=== PATIENT | male | born 1955 | race African-American/Black ===

== ENCOUNTER 2025-04-08 12:36 | Outpatient (AMB) | payer MEDICARE, SELFPAY ==
--- OUTSIDE RECORDS SUMMARY | 2024-05-19 08:49 | XMS_ITS | Encounter Summary ---
Author Organization [employer] Address [address] [place] [address] Care Team Providers Care Wool Hanker Name Role Phone Vivek Fowler MD Primary Care Provider [phone] Encounter Details Date Type Department Care Team (Late st Contact Info) Description 05/19/2024 8:49 AM EDT Hospital Encounter TH HISTORIC ENCOUNTERS [facility] ONLY Vivek Fowler MD [address] [place] [address] Social History Tobacco Use Types Packs/Day Years Used Date Smoking Tobacco: Never Smokeless Tobacco: Never Alcohol Use Standard Drinks/Week Comments No 0 (1 standard drink = 0.6 oz pur e alcohol) Sex and Gender Information Value Date Recorded Sex Assigned at Not on file Legal Sex Male 9:22 AM EST Gender Identity Not on file Sexual Orientation Not on file documented as of this encounter Last Filed Vital Signs Vital Sign Reading Time Taken Comments Blood Pressure 124/78 05/19/2024 9:07 AM EDT Pulse 76 05/19/2024 9:07 AM EDT Temperature - - Respiratory Rate - - Oxygen Saturation - - Inhaled Oxygen Concentration - - Weight 134 kg (295 lb) 05/19/2024 9:07 AM EDT Height 180.3 cm (5' 11 ) 05/19/2024 9:07 AM EDT Body Mass Index 41.14 05/19/2024 9:07 AM EDT documented in this encounter Plan of Treatment Not on file documented as of this encounter Visit Diagnoses Not on filedocumented in this encounter Care Teams Wool Hanker Relationship Specialty Start Date End Date Vivek Fowler MD PCP - General 09/27/22 documented as of this encounter
--- NOTE | 2025-04-08 12:41 | A.OFFVIS_ITS ---
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 He was at [facility] recently when he presented with dizziness which from his description sounds like vertigo. He had imaging done including CT scan and 2 brain MRIs which were negative. The documents noted initial diagnosis of TIA and later it was documented that he may have vestibular issues. He has been getting a spinning sensation in his head which is present even after closing his eyes. He feels his head is spinning. This is worse when he turns his head to the left. He has diplopia when he looks to the left side 2. 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 He wears hearing aids and follows with ENT regularly. He does not drink water and is very bad with hydration. His blood pressure is low and he is saying that his blood pressure is always low. No chest discomfort or shortness of breath. No clear syncopal episodes although he said in November while exercising in the gym with physiotherapist he had a spell where to gentleman held him from falling. His echocardiogram reportedly was normal at [facility] and did not have any wall motion abnormalities or valvular issues. He just completed a cardiac event monitor and we will get the report from [facility]. PFSH Family History (Updated 04/08/25 @ 12:55 by Melissa Escalante CMA) Mother Pacemaker High blood pressure Social History (Updated 04/08/25 @ 12:53 by Melissa Escalante CMA) Alcohol intake: never Patient Tobacco Use Status: Never used Tobacco Review of Systems Const Denies chills, Denies fatigue, Denies fever(s), Denies frequent falls, Denies we akness, Denies weight gain and Denies weight loss ENT Denies dizziness Card Denies chest pain, Denies leg edema, Denies lightheadedness, Denies palpit ations, Denies dyspnea, Denies dyspnea on exertion and Denies orthopnea Resp Denies cough, Denies dyspnea and Denies dyspnea on exertion GI Denies bloating and Denies change in bowel habits Musc Denies muscle weakness, Denies numbness and Denies tingling Neuro Denies dizziness, Denies frequent falls, Denies numbness, Denies tingling and Denies weakness Endo Denies fatigue and Denies palpitations Physical Exam Vital Signs: Last Vital Signs Pulse 66 04/08/25 12:45 BP 100/68 04/08/25 12:45 BMI result Body Mass Index 43.0 GENERAL APPEARANCE: in no acute distress, pleasant. NECK: no carotid bruit, no jugular venous distention. SKIN: no suspicious lesions, warm and dry. HEART: no murmurs, regular rate and rhythm. LUNGS: clear to auscultation bilaterally. ABDOMEN: soft, nontender. EXTREMITIES: no edema. PERIPHERAL PULSES: equal. NEUROLOGIC: No gross deficits, AAO X 3. Diplopia and nystagmus leftward gaze. Office Procedures EKG Details: Normal sinus rhythm 66 beats per minute, normal axis, low voltage, can not rule out anterior infarct, QTC 419 milliseconds [id number], Complete Assessment & Plan Assessment & Plan (1) Vertigo: Code(s): R42 - Dizziness and giddiness Category: Medical Plan 69-year-old gentleman who is here for dizziness. His clinical story is concerning for benign positional vertigo. I have advised him to keep himself well hydrated. Adding meclizine for symptomatic relief. He is known to ENT because of hearing loss from young age and we will be following with ENT to discuss management. He has neck surgery before infusion of vertebra so I am not sure whether Juancarlos or Franklin-Hallpike maneuvers will be possible but he should discuss this with ENT. His blood pressure is low. He has been advised to hydrate himself and decrease the lisinopril 10 mg daily. I have sent a new script for him. So far this does not appear to be a cardiovascular issue. We will monitor him closely and get the results of his event monitor done at [facility]. Thank you for allowing me to participate in the care of your patient. Please feel free to contact me if you have any questions. Medications: New lisinopril 10 mg PO DAILY 90 tabs 3RF Coding Level of Care Code New Pt Level 3 (45549) Diagnoses Vertigo R42 CPT Codes EKG - CPT: 53503-[id number], Complete ([id number])
[2025-04-08 12:45] VITALS: BP 100/68; PULSE 66; BMI 43.0
--- OUTSIDE RECORDS SUMMARY | 2025-04-08 15:03 | XMS_ITS | Clinical Summary ---
Author Organization [facility] Address [address] [place] [address] Care Team Providers Care Marine Painter Name Role Phone Charly Gonzalez Primary Care Provider Unavailabl e Medications Multiple Vitamins-Minerals (Diabetes Health) Misc 0 12/15/2016 Active Active Problems Problem Noted Date Diagnosed Date Obstructive sleep apnea hypopnea, severe 017 Left SNHL 12/15/2016 Social History Tobacco Use Types Packs/Day Years Used Date Smoking Tobacco: Never Assessed Comments:Smoking Status:Non- smoker Sex and Gender Information Value Date Recorded Sex Assigned at Not on file Legal Sex Male 8:35 PM EDT Gender Identity Not on file Sexual Orientation Not on file Plan of Treatment Health Maintenance Due Date Last Done Comments Hepatitis C Screening 1955 DTaP/Tdap/Td (1 - Tdap) 12/20/1973 Pneumococcal 50+ years (1 of 1 - PCV) 12/20/2005 Zoster (Shingrix) (1 of 2) 12/20/2005 COVID-19 Vaccine ( - 2023-2 5 season) 2025 Influenza (#1) 2025 RSV (1 - 1-dose 75+ series) 12/20/2030 Abdominal Aorta Imaging Discontinued HPV Vaccine (No Doses Required) Completed Hep A Aged Out No longer eligi ble based on patient's age to complete this topic Hep B Aged Out No longer eligi ble based on patient's age to complete this topic Hib Aged Out No longer eligi ble based on patient's age to complete this topic Meningococcal ACWY Aged Out No longer eligible based on patient's age to complete this topic Zoster (Zostavax) Discontinued Care Teams Marine Painter Relationship Specialty Start Date End Date Charly Gonzalez PCP - General 03/12/23
--- OUTSIDE RECORDS SUMMARY | 2025-04-08 15:03 | XMS_ITS | Clinical Summary ---
Author Organization [facility] [place] [address] Phone Care Team Providers Care Pig Iron Loader Name Role Phone Vivek Fowler MD Primary Care Provider [phone] Active Problems Problem Noted Date Diagnosed Date Severe left ventricular hypertrophy 12/24/2024 Immunizations Name Administration Dates Next Due Pfizer SARS-CoV-2 COVID-19, mRNA, LNP-S, preservative free 01/31/2021 Surgical History Surgery Date Site/Laterality Comments COLONOSCOPY 2015 PROCEDURE:COLONOSCOPY;COMMENT :int hemorrhoids otherwise normal; rec rpt in 10yrs SKIN LESION EXCISION PROCEDURE:SKIN LESION EXCISION;COMMENT:sebaceous cyst ANKLE SURGERY Right PROCEDURE:ANKLE SURGERY;COMMENT:X2 COLONOSCOPY 09/15/2015 N/A PROCEDURE:COLONOSCOPY;COMMENT :Procedure: COLONOSCOPY; Surgeon: Joe Naik MD; Location: [facility] ENDOSCOPY; Service: Gastroenterology; Laterality: N/A; EAR RECONSTRUCTION Right PROCEDURE:EAR RECONSTRUCTION CATARACT EXTRACTION W/ INTRAOCULAR LENS IMPLANT Bilateral PROCEDURE:CATARACT EXTRACTION W/ INTRAOCULAR LENS IMPLANT MUSCLE BIOPSY 09/30/2019 Right PROCEDURE:MUSCLE BIOPSY;COMMENT:Procedure: BIOPSY MUSCLE RIGHT LEG DEEP; Surgeon: Nghia Daniels MD; Location: [facility] SURGERY; Service: General; Laterality: Right; JOINT REPLACEMENT PROCEDURE:JOINT REPLACEMENT FRACTURE SURGERY PROCEDURE:FRACTURE SURGERY EYE SURGERY PROCEDURE:EYE SURGERY TOTAL KNEE ARTHROPLASTY Bilateral PROCEDURE:REPLACEMENT TOTAL KNEE BILATERAL TOTAL HIP ARTHROPLASTY Right PROCEDURE:TOTAL HIP ARTHROPLASTY Medical History Medical History Date Comments Can't get food down 02/07/2015 DX:Can't get food down HLD (hyperlipidemia) 02/07/2015 DX:HLD (hyp erlipidemia) BP (high blood pressure) 02/07/2015 DX:BP ( high blood pressure) Dysmetabolic syndrome 02/07/2015 DX:Dysmeta bolic syndrome Adiposity 02/07/2015 DX:Adiposity Atheroma, skin 02/07/2015 DX:Atheroma, ski n Diabetes mellitus, slow onse t ([facility] V24, [facility] V28) 02/07/2015 DX:Diabetes mellitus, slow onset (HCC) Nocturnal dyspnea 02/07/2015 DX:Nocturnal d yspnea H/O cardiovascular stress test 2013 D X:H/O cardiovascular stress test;COMMENT:neg Vitamin D deficiency DX:Vitamin D deficiency Anemia DX:Anemia Vitamin B12 deficiency DX:Vitami n B12 deficiency DDD (degenerative disc disea se), lumbar DX:DDD (degenerative disc di sease), lumbar H/O echocardiogram 2010 DX:H/O echoca rdiogram;COMMENT:mild LA enlargement, evidence of LV diasolic dysfunction with abnormal relaxation filling pattern AGUSTÍN (obstructive sleep apnea) 02/07/2015 DX :AGUSTÍN (obstructive sleep apnea);COMMENT:severe w/ sleep hypoxemia and insomnia cpap Pneumonia DX:Pneumonia Tuberculosis DX:Tuberculosis Diabetes ([facility] V24, [facility] V28) DX:Diabetes ([facility]) Primary osteoarthritis of right hip 05/06/2020 DX:Primary osteoarthritis of right hip Cataract DX:Cataract Family History Medical History Relation Name Comments Other: Father unknown Cancer Mother Unknown Diabetes Mother Heart disease Mother Hypertension Mother Other: Mother unknown Relation Name Status Comments Father Mother Sister Alive Social History Tobacco Use Types Packs/Day Years Used Date Smoking Tobacco: Never Smokeless Tobacco: Never Alcohol Use Standard Drinks/Week Comments No 0 (1 standard drink = 0.6 oz pur e alcohol) Sex and Gender Information Value Date Recorded Sex Assigned at Not on file Legal Sex Male 9:22 AM EST Gender Identity Not on file Sexual Orientation Not on file Obstetrics History Last Filed Vital Signs Vital Sign Reading [...] Mass Index 41.14 05/19/2024 9:07 AM EDT Plan of Treatment Health Maintenance Due Date Last Done Comments Diabetes: Annual Foot Exam 12/20/1965 Diabetes: Annual Retina Eye Exam 12/20/1965 RSV Immunization Adult Patients (1 - Risk 60-74 years 1-dose series) 2015 Diabetes: Annual GFR (Glomerular Filtration Rate) 05/09/2020 05/09/2019, 02/20/2019, 08/28/2018, Additional history exists Hepatitis B Vaccines (3 of 3 - 19+ 3-dose series) 07/14/2021 02/16/2021, 01/12/2021 Abdominal Aortic Aneurysm (AAA) Screen 07/13/2022 Colorectal Cancer Screening: Colonoscopy 07/13/2022 Falls Risk Assessment 07/13/2022 Hepatitis C Screening 07/13/2022 Hypertension/CHF/CAD Annual BMP Blood Test 07/13/2022 05/09/2019, 02/20/2019, 08/28/2018, Additional history exists Medicare Annual Wellness Visit 07/13/2022 Social Influencers of Health Screening 07/13/2022 Diabetes: Annual Urine Albumin-Creatinine Ratio (uACR) 07/25/2022 Zoster Vaccines (2 of 2) 03/08/2023 01/11/2023 COVID-19 Vaccine ( - season) 2024 01/31/2021, 11/14/2020 Depression Screening 08/06/2024 Diabetes: Blood Sugar Control Test (HGBA1C) 09/28/2024 03/28/2024, 03/24/2022 Influenza Vaccine (#1) 2025 , 04/19/2020, 04/07/2020, Additional history exists DTaP,Tdap,and Td Vaccines (2 - Td or Tdap) 12/24/2026 12/24/2016 Cholesterol Screening (Lipid Panel) 03/28/2029 03/28/2024, 03/28/2024, 05/09/2019, Additional history exists Meningococcal ACWY Vaccine Aged Out 09/03/2002 N o longer eligible based on patient's age to complete this topic Pneumococcal Vaccine: 50+ Years Completed 12/27/2022 HIB Vaccines Aged Out No longer eligi ble based on patient's age to complete this topic HPV Vaccines Aged Out No longer eligi ble based on patient's age to complete this topic Hepatitis A Vaccines Aged Out No long er eligible based on patient's age to complete this topic IPV Vaccines Aged Out No longer eligi ble based on patient's age to complete this topic MMR Vaccines Aged Out No longer eligi ble based on patient's age to complete this topic Meningococcal B Vaccine Aged Out No l onger eligible based on patient's age to complete this topic RSV Immunization Patients Under 20 months Aged Out No longer eligible based on patient's age to complete this topic Varicella Vaccines Aged Out No longer eligible based on patient's age to complete this topic Insurance [employer] MED[employer]ARE [employer]VANTAGE Care Teams Pig Iron Loader Relationship Specialty Start Date End Date Vivek Fowler MD PCP - General 09/27/22
--- OUTSIDE RECORDS SUMMARY | 2025-04-08 15:03 | XMS_ITS | Clinical Summary ---
Author Organization [facility] Address [address] [place] [address] Care Team Providers Care Glue Bone Drier Name Role Phone Unavailable Primary Care Provider Unavailabl e Allergies No known active allergies Medications SUPPLY DME MISCIndication s:Arthropathy, transient, ankle or foot, left B/L WIDE HIGH TOE BOX SNEAKERS 1 each 3 Active SUPPLY DME MISCIndication s:Arthropathy, transient, ankle or foot, left B/L ACCOMMODATIVE PLASTIZOTE INSERTS 1 each 3 Active SUPPLY DME MISCIndication s:Arthropathy, transient, ankle or foot, left B/L WIDE HIGH TOE BOX SHOES 1 each 3 Active Social History Tobacco Use Types Packs/Day Years Used Date Smoking Tobacco: Never Assessed Sex and Gender Information Value Date Recorded Sex Assigned at Not on file Legal Sex Male 3:22 PM EDT Gender Identity Not on file Sexual Orientation Not on file Plan of Treatment Health Maintenance Due Date Last Done Comments Hepatitis C Virus Screening 1955 DTaP/Tdap/Td Vaccines (1 - Tdap) 12/20/1974 Pneumococcal Vaccines 50+ (1 of 1 - PCV) 12/20/2005 Zoster (Shingles) Vaccine (1 of 2) 12/20/2005 COVID-19 Vaccine ( - 2023-2 5 season) 2024 RSV Vaccine 60 years and old er and Patients (1 - 1-dose 75+ series) 12/20/2030 Hepatitis B Vaccines Aged Out No long er eligible based on patient's age to complete this topic
--- OUTSIDE RECORDS SUMMARY | 2025-04-08 15:03 | XMS_ITS ---
Author Name [facility] Organization Unknown History of Medication Use Medication Directions Dispensed Refills Start Date End Date Stat meloxicam 15 mg tablet Take 1 tablet every day by oral route. 08/14/2024 active gabapentin 100 mg capsule TAKE 1 CAPSULE BY MOUTH THREE TIMES A DAY 07/13/2024 active Lantus Solostar U-100 Insulin 100 unit/mL (3 mL) subcutaneous pen 02/20/2024 active SUPPLY DME MISC B/L WIDE HIGH TOE BOX SNEAKERS 05/18/2023 active Ozempic 1 mg/dose (4 mg/3 mL) subcutaneous pen injector INJECT 1 MG UNDER THE SKIN EVERY 7 DAYS 04/23/2023 active semaglutide 0.25 mg or 0.5 mg (2 mg/3 mL) subcutaneous pen injector Inject 1 mg as directed once a week. 09/19/2022 4 completed ferrous gluconate 324 mg (36 mg iron) tablet Take 1 tablet (324 mg total) by mouth daily. 09/18/2022 active hydrocodone 7.5 mg-acetaminophen 325 mg tablet TAKE ONE TABLET BY MOUTH EVERY 8 HOURS NEEDED FOR PAIN UP TO SEVEN DAYS 10/19/2021 2 completed naproxen 500 mg tablet TAKE 1 TABLET BY MOUTH TWICE A DAY WITH MEALS 09/03/2021 3 completed amlodipine 5 mg tablet TAKE 1 TABLET BY MOUTH EVERY DAY 10/18/2020 active polyethylene glycol 3350 17 gram oral powder packet Take 17 g by mouth daily as needed. 07/07/2020 3 completed sennosides 8.6 mg tablet Take 2 tablets (17.2 mg total) by mouth 2 (two) times a day as needed. 07/07/2020 3 completed baclofen 10 mg tablet TAKE 1 TABLET BY MOUTH TWICE DAILY AND TAKE 2 TABS AT BEDTIME 04/08/2020 3 completed Xyosted 100 mg/0.5 mL subcutaneous auto-injector Inject 100 mg as directed once a week. 12/04/2018 2 completed Lipitor 20 mg tablet Take 1 tablet (20 mg total) by mouth daily. 12/28/2017 active Bydureon INJECT 2MG SUBCUTANEOUSLY ONCE A WEEK 08/14/2016 3 completed Glucophage 1,000 mg tablet Take 1 tablet (1,000 mg total) by mouth every morning with breakfast. 01/18/2015 active lisinopril 20 mg tablet 01/14/2015 active allopurinol 300 mg tablet Allopurinol 300 MG Oral Tablet TAKE 1 TABLET DAILY. Refills: 0 Started 25-Sep-2013 Active 09/25/2013 active aspirin 81 mg tablet Aspirin 81 MG Oral Tablet TAKE 1 TABLET DAILY. Refills: 0 Started 25-Sep-2013 Active 09/25/2013 active tramadol 50 mg tablet Take 50 mg by mouth every 6 (six) hours as needed for pain. 3 completed meloxicam 15 mg tablet active Problems Problem Status Onset Date Problem Type Date of Resolution Source Hyperlipidemia active 2015-02-07 ProblemAct [facility] Cobalamin deficiency active 2015-02-07 ProblemAct [facility] Prostate specific antigen above reference range active 2024-08-14 ProblemAct [facility] Paroxysmal supraventricular tachycardia active 2017-08-29 ProblemAct [facility] Cervical spondylosis active 2016-11-07 ProblemAct [facility] Severe obesity active 2015-02-07 ProblemAct [facility] Snoring active 2015-02-07 ProblemAct [facility] Anemia active 2015-02-07 ProblemAct [facility] History of clinical finding in subject active 2023-03-27 ProblemAct [facility] Numbness of lower limb active 2015-02-08 ProblemAct [facility] Anesthetics adverse reaction active 2020-09-27 ProblemAct [facility] Arthritis of lumbosacral spine active 2024-08-14 ProblemAct [facility] Heavy legs active 2015-02-08 ProblemAct [facility] Obstructive sleep apnea syndrome active 2015-02-08 ProblemAct [facility] Diabetes mellitus active 2021-11-17 ProblemAct [facility] COVID-19 active 2023-05-14 [facility] Dysphagia active 2015-02-07 ProblemAct [facility] Type 2 diabetes mellitus without complication active 2015-02-07 ProblemAct [facility] Epidermoid cyst of skin active 2015-02-07 ProblemAct [facility] Nocturnal dyspnea active 2015-02-07 [facility] Metabolic syndrome X active 2015-02-07 ProblemAct [facility] Chronic ankle pain active 2017-08-29 ProblemAct [facility] Localized, primary osteoarthritis active 2020-05-06 ProblemAct [facility] Hypertensive disorder active 2015-02-07 ProblemAct [facility] Arthropathy, transient, ankle or foot, left active [facility] Immunizations Vaccine Date Source Lot Number Status Seasonal trivalent influenza vaccine, adjuvanted, preservative free [facility]19/[id number] zoster vaccine subunit 01/11/2023 [facility] [id number] co mpleted Pneumococcal conjugate vacci ne 20-valent (PCV20), polysaccharide [id number] conjugate, adjuvant, preservative free 12/27/2022 [facility] [id number] comp leted hepatitis B vaccine, adult dosage 02/16/2021 [facility] 74 [id number] completed hepatitis B vaccine, adult dosage 01/12/2021 [facility] EM[facility] completed SARS-COV-2 (COVID-19) vaccin e, mRNA, spike protein, LNP, preservative free, 30 mcg/0.3mL dose 11/14/2020 [facility] [id number] completed Influenza, injectable, quadr ivalent, preservative free 04/19/2020 [facility] [id number] completed Influenza, injectable, quadr ivalent, preservative free 04/07/2020 [facility] completed Influenza, injectable, [place] [place] Canine Kidney, preservative free, quadrivalent 06/14/2019 [facility] [id number] completed tetanus toxoid, reduced diph theria toxoid, and acellular pertussis vaccine, adsorbed 12/24/2016 [facility] completed meningococcal polysaccharide vaccine (MPSV4) 09/03/2002 [facility] Encounters Encounter Type Encounter Reason Primary Diagnosis Location Date [facility]24 [facility] 12/23/2024 [facility] 11/24/2024 [facility] 10[facility]23/2024 [facility] 09/23/2024 Ambulatory [facility] 04/2025 Ambulatory [facility] 04/2025 Ambulatory [facility] 04/2025 Ambulatory [facility] 06/07 [facility] 09/24/2023 [facility] 09[facility]24/2023 [facility] 08/22/2023 [facility] 08/22/2023 [facility] 07[facility]21/2023 [facility] 07/21/2023 [facility] 06[facility]30/2023 Ambulatory [facility], [facility] 06/30/2023 [facility] 06/06/2023 [facility] 05/18/2023 [facility] 05/18/2023 [facility] 05/03/2023 [facility] 04/30/2023 [facility] 04/23/2023 [facility] 04/05/2023 Ambulatory [facility], [facility] 04/05/2023 [facility] 04/05/2023 [facility] 02/19/2023 [facility] 02/16/2023 Ambulatory [facility], [facility] 02/16/2023 [facility] 02[facility]16/2023 Care Team Organization Name Specialty Phone Email Start Date End [facility] 08/19/2024 11/13/2024 [facility] 07/18/2023 03/24/2024 Xiomara Serrano MD, [facility] 02/16/2023 [facility] XIOMARA SERRANO Primary Care 01/12/202303/06
--- OUTSIDE RECORDS SUMMARY | 2025-04-08 15:03 | XMS_ITS | Clinical Summary ---
Author Organization [facility] Facility Address [address] [address] Care Team Providers Care Supervisor Customer Complaint Service Name Role Phone Adrian Russell MD Primary Care Provider Allergies No known active allergies Medications allopurinol (ZYLOPRIM) 300 MG tablet TAKE 1 TABLET BY MOUTH ONCE A DAY 90 tablet 11 1 Active amLODIPine (NORVASC) 5 MG tablet Take 1 tablet by mouth 1 (one) time each day 1 Active atorvastatin (LIPITOR) 20 MG tablet Take 20 mg by mouth at bed time 2 Active econazole nitrate 1 % cream 2 Active Exenatide ER (Bydureon) 2 MG pen-injector INJECT 2MG SUBCUTANEOUSLY ONCE A WEEK 7 Active HYDROcodone-ac etaminophen (NORCO) 7.5-325 MG per tablet TAKE ONE TABLET BY MOUTH EVERY 8 HOURS NEEDED FOR PAIN UP TO SEVEN DAYS 2 Active lisinopril 20 MG tablet Take 20 mg by mouth 1 (one) time each day 2 Active metFORMIN (GLUCOPHAGE) 1000 MG tablet Take 1,000 mg by mouth 5 Active modafinil (PROVIGIL) 200 MG tablet Take 100 mg by mouth 1 (one) time each day 2 Active naproxen (NAPROSYN) 500 MG tablet Take 500 mg by mouth in the morning and 500 mg in the evening. Take with meals. 2 Active prednisoLONE acetate (PRED FORTE) 1 % ophthalmic suspension INSTILL 1 DROP INTO LEFT EYE 4 TIMES A DAY DIRECTED 2 Active Active Problems Problem Noted Date Diagnosed Date Anemia 11/17/2021 Diabetes mellitus 11/17/2021 Overview (11/17/2021): oral and other SC injectable Renal stone 11/17/2021 Vitamin B12 deficiency 11/17/2021 Anesthetics adverse reaction 09/27/2020 Overview (11/17/2021): has woken up several times Overview: has woken up several times Prostate specific antigen above reference range 09/27/2020 Arthritis of right hip 07/06/2020 Localized, primary osteoarthritis 05/06/2020 Primary osteoarthritis of right hip 05/06/2020 Chronic ankle pain 08/29/2017 Cervical spondylosis 11/07/2016 Heavy legs 02/08/2015 Numbness of lower limb 02/08/2015 Obstructive sleep apnea syndrome 02/08/2015 Dysphagia 02/07/2015 Epidermoid cyst of skin 02/07/2015 Hyperlipidemia 02/07/2015 Hypertensive disorder 02/07/2015 Metabolic syndrome X 02/07/2015 Nocturnal dyspnea 02/07/2015 Severe obesity 02/07/2015 Snoring 02/07/2015 Type 2 diabetes mellitus without complication Paroxysmal supraventricular tachycardia 08/06/19 14 Overview (11/17/2021): controlled with CCB; MCT in 2013 short run of AT (see note scanned into Media 09/26/2018 Marielle KOROMA /Aneesh DALAL [facility] [place] Immunizations Immunization Administration Dates Next Due Meningococcal Polysaccharide 09/03/2002 Tdap 12/24/2016 Family History Medical History Relation Comments Diabetes Mother Heart disease Mother Hypertension Mother Relation Status Comments Mother Social History Tobacco Use Types Packs/Day Years Used Date Smoking Tobacco: Never Smokeless Tobacco: Never Alcohol Use Standard Drinks/Week Comments No 0 (1 standard drink = 0.6 oz pur e alcohol) Sex and Gender Information Value Date Recorded Sex Assigned at Not on file Legal Sex Male 5:18 PM EST Gender Identity Not on file Sexual Orientation Not on file Last Filed Vital Signs Vital Sign Reading Time Taken Comments Blood Pressure 104/60 11/17/2021 1:30 PM EDT Pulse 71 11/17/2021 1:30 PM EDT Temperature - - Respiratory Rate - - Oxygen Saturation 98% 11/17/2021 1:30 PM EDT Inhaled Oxygen Concentration - - Weight 144 kg (317 lb) 11/17/2021 1:30 PM EDT Height 182.9 cm (6') 11/17/2021 1:30 PM EDT Body Mass Index 42.99 11/17/2021 1:30 PM EDT Plan of Treatment Health Maintenance Due Date Last Done Comments Colorectal Cancer Screening: Annual FOBT 12/20/2004 Colorectal Cancer Screening: Colonoscopy 12/20/2004 Colorectal Cancer Screening: Sigmoidoscopy 12/20/2004 Pneumococcal Vaccine: 50+ Years (1 of 1 - PCV) 12/20/2005 Diabetes: Ophthalmology Exam 09/03/2020 Diabetes: Pedal Pulse Checked 09/03/2020 Diabetes: Sensory Foot Exam 09/03/2020 Diabetes: Visual Foot Exam 09/03/2020 Diabetes: Hemoglobin A1C 12/07/2021 022, 09/16/2019 Influenza Vaccine (#1) 2025 Hepatitis B Vaccine Aged Out No longe r eligible based on patient's age to complete this topic Procedures Procedure Name Priority Date/Time Associated Diagnosis Comments HEMOGLOBIN A1C Routine 09/16/2019 2:21 PM EST from Last 3 Months or Most Recently Relevant to Health Maintenance Results * (ABNORMAL) Hemoglobin A1c (09/16/2019 2:21 PM EST) Hemoglobin A1C 6.9(H) (4.0-5.6) % [facility] 3 Comment: Effective 09/08/19, hemoglobin A1c reference range changed. MONITORING: In known diabetic patients, hemoglobin A1c targets should be discussed with health care provider. DIAGNOSTIC USE: The [place] Diabetes [employer] (ADA) and the World Health Organization (WHO) recommend the use of HbA1c to diagnose diabetes using a threshold of 6.5%. Patients who have an HbA1c between 5.7% and 6.4% are considered at increased risk for developing diabetes in the future. CAUTION: Falsely low HbA1c results may be observed in patients with hemolytic anemia, homozygous forms of abnormal hemoglobin (e.g. SS, CC, SC), , recent blood loss or hemoglobin F greater than 7%. Fructosamine may be used as an alternate test in these cases. REFERENCE: ADA: Standards of Medical Care in Diabetes 2020, The Journal of Clinical and Applied Research and Education Volume 43, Supplement 1 Testing performed or reported by ~[facility], ~a Service of [facility], ~[address] [place] [id number]~ Jose Cao MD, Weather Observer~ 09/16/2019 2:21 PM EST us Olayinka Reyez MD LAB BLOOD ORDERABLES Final Re sult [facility] 3 from Last 3 Months or Most Recently Relevant to Health Maintenance [place] Care Teams Supervisor Customer Complaint Service Relationship Specialty Start Date End Date Adrian Russell MD [address] [place] [address], [address] [place] [address] PCP - General Internal Medicine 09/26/21
--- OUTSIDE RECORDS SUMMARY | 2025-04-08 15:03 | XMS_ITS | Clinical Summary ---
Author Organization [facility] Address [address] [place] [address] Care Team Providers Care Indigo Mixer Name Role Phone Vivek Fowler MD Primary Care Provider [phone] Allergies No known active allergies Medications Medication Sig Dispensed Refills Start Date End Date Status allopurinol (ZYLOPRIM) 300 MG tablet Allopurinol 300 MG Oral Tablet TAKE 1 TABLET DAILY. Refills: 0 Started -Sep-2013 Active 0 09/25/2013 Active aspirin 81 MG tablet Aspirin 81 MG Oral Tablet TAKE 1 TABLET DAILY. Refills: 0 Started -Sep-2013 Active 0 09/25/2013 Active lisinopril (PRINIVIL,ZESTRIL) 20 MG tablet 4 01/14/2015 Active GLUCOPHAGE 1000 MG tablet Take 1 tablet (1,000 mg total) by mouth every morning with breakfast. 4 01/18/2015 Active LIPITOR 20 MG tablet Take 1 tablet (20 mg total) by mouth daily. 0 12/28/2017 Active amLODIPine (NORVASC) tablet 5 mgIndications:Essen tial hypertension TAKE 1 TABLET BY MOUTH EVERY DAY 90 tablet 0 10/18/2020 Active ferrous gluconate (FERGON) 324 MG tablet Take 1 tablet (324 mg total) by mouth daily. 0 09/18/2022 Active Ozempic, 1 MG/DOSE, 4 MG/3ML SOPN INJECT 1 MG UNDER THE SKIN EVERY 7 DAYS 0 04/23/2023 Active Lantus SoloStar 100 UNIT/ML injection 0 02/20/2024 Active gabapentin (NEURONTIN) 100 MG capsuleIndications: Paresthesia and pain of both upper extremities Take 1 capsule (100 mg total) by mouth 3 (three) times a day. 270 capsule 1 02/25/2024 Active Misc. Devices MISCIndications:Ost eoarthritis of spine with radiculopathy, cervical region,Status post total bilateral knee replacement,S/P hip replacement, right VBX 5000 Whole Body Vibration machine 1 Units 0 05/19/2024 Active Active Problems Problem Noted Date Diagnosed Date COVID-19 05/14/2023 History of elevated PSA 03/27/2023 Diabetes mellitus 11/17/2021 Overview: oral and other SC injectable Adverse effect of anesthetic 09/27/2020 Overview: Overview: has woken up several times Primary localized osteoarthrosis of right lower leg 05/06/2020 Chronic pain of right ankle 08/29/2017 Paroxysmal SVT (supraventricular tachycardia) Osteoarthritis of spine with radiculopathy, cerv ical region 11/07/2016 AGUSTÍN on CPAP 02/08/2015 Numbness in both legs 02/08/2015 Leg heaviness 02/08/2015 Dysphagia 02/07/2015 HLD (hyperlipidemia) 02/07/2015 Hypertensive disorder 02/07/2015 Dysmetabolic syndrome 02/07/2015 Class 3 severe obesity due t o excess calories with serious comorbidity and body mass index (BMI) of 40.0 to 44.9 in adult 02/07/2015 Atheroma, skin 02/07/2015 Snoring 02/07/2015 Type 2 diabetes mellitus without complication Nocturnal dyspnea 02/07/2015 Anemia Vitamin B12 deficiency Resolved Problems Problem Noted Date Diagnosed Date Resolved Date Elevated PSA 09/27/2020 03/27/2023 Primary osteoarthritis of right hip 05/06/2020 09/27/2020 Colon cancer screening 09/15/201505/09 Normal routine physical examination 02/08/2015 08/12/2015 Immunizations Name Administration Dates Next Due Covid-19 (GoFormz) Dilution Required 11/14/2020 Hepatitis B (Adult 3 dose)/(Adolescent 2 dose) E ngerix 02/16/2021,01/12/2021 Influenza Quad (Fluarix/Fluz one/FluLaval) 0.5mL (SD-IIV4) 04/19/2020,04/07/2020 Influenza Quad (Flucelvax) 0.5mL >6mon (ccIIV4) 06/14/2019 Influenza Trivalent (Fluad) 0.5mL (65 yrs &>) Meningococcal Polysaccharide (inactive) 09/03/19 03 Pneumococcal Conjugate PCV20 12/27/2022 Shingrix Vaccine (Zoster Recombinant) 01/11/2023 Tdap 12/24/2016 Family History Medical History Relation Name Comments Other Father unknown Cancer Mother Unknown Diabetes Mother Heart disease Mother Hypertension Mother Other Mother unknown Relation Name Status Comments Father Mother Sister Alive Social History Tobacco Use Types Packs/Day Years Used Date Smoking Tobacco: Never Smokeless Tobacco: Never Alcohol Use Standard Drinks/Week Comments No 0 (1 standard drink = 0.6 oz pur e alcohol) Sex and Gender Information Value Date Recorded Sex Assigned at Male 09/30/2019 7:12 AM EST Gender Identity Not on file Sexual Orientation Not on file Job Start Date Occupation Industry Not on file Not on file Not on file Last Filed Vital Signs Vital Sign Reading Time Taken Comments Blood Pressure 124/78 05/19/2024 9:07 AM EDT Pulse 76 05/19/2024 9:07 AM EDT Temperature 36.7 C (98 F) 05/19/2024 9:07 AM EDT Respiratory Rate 18 04/11/2023 8:53 AM EDT Oxygen Saturation 97% 05/19/2024 9:07 AM EDT Inhaled Oxygen Concentration - - Weight 133.8 kg (295 lb) 05/19/2024 9:07 AM EDT Height 180.3 cm (5' 11 ) 05/19/2024 9:07 AM EDT Body Mass Index 41.14 05/19/2024 9:07 AM EDT Plan of Treatment Health Maintenance Due Date Last Done Comments RSV Adult > 60+ Yrs or (1 - Risk 60-74 years 1-dose series) 2015 Diabetes: Microalbumin Test 02/09/2016 02/08/2015 Diabetes: Foot Exam 02/28/2018 02/28/2017, 02/28/2017, 02/28/2017 Diabetes: Eye Exam (No Retinopathy) 06/06/2019 06/06/2017, 04/06/2016, 03/02/2015 Fall Risk Assessment 12/20/2020 02/28/2017, 02/28/2017, 02/24/2016, Additional history exists Hepatitis B Vaccines (3 of 3 - 19+ 3-dose series) 07/14/2021 02/16/2021, 01/12/2021 Shingrix-Zoster Vaccine (2 of 2) 03/08/2023 01/11/2023 BMI Counseling 09/27/2023 09/27/2022, 05/06, 02/17/2020, Additional history exists Depression Screening 09/27/2023 09/27/2022, 02/28/2017, 02/28/2017, Additional history exists COVID-19 Vaccine ( - season) 2024 01/31/2021, 11/14/2020 Hemoglobin A1C Due 09/28/2024 03/28/2024, 0 03/24/2022, 09/09/2021, Additional history exists Preventative Health Evaluation 02/24/2025 02/25/2024, 09/27/2022, 09/27/2022, Additional history exists Influenza Vaccine (#1) 2025 , 04/19/2020, 04/07/2020, Additional history exists Colon Cancer Screening (Colonoscopy) 09/15/2025 09/15/2015 DTap / Tdap / Td (2 - Td or Tdap) 12/24/2026 12/24/2016 Hepatitis C Screening Completed 02/28/2017 Pneumococcal Vaccine Completed 12/27/2022 RSV Ped < 20 months Aged Out No longe r eligible based on patient's age to complete this topic Advance Directives For more information, please contact: [phone] Documents on File Type Date Recorded Patient Employee Benefits Attorney Expl anation Advance Directive and Living Will 02/23/2015 10:05 AM Special Report From [facility] 02-23-15 Latest Code Status on File Code Status Date Activated Date Inactivated Comments Full Code 09/30/2019 9:34 AM 09/30/2019 4:37 PM This code status was ascertained in the following way: discussion with patient . Care Teams Indigo Mixer Relationship Specialty Start Date End Date Vivek Fowler MD PCP - General Family Medicine 09/27/22 [facility] Endocrinology Consulting Physician Endocrinology 09/04/22
== END 2025-04-08 13:29 | disposition home or self-care (01) ==
PROVIDERS: PCP Internal Medicine; Visit Provider Internal Medicine Cardiovascular Disease
DX: R42 Dizziness and giddiness (principal)
CPT/HCPCS: 93010; 99203

== ENCOUNTER → 2025-04-08 12:36 | Outpatient (BNVA) | payer MEDICARE, SELFPAY | PROVIDERS: PCP Internal Medicine; Visit Provider Internal Medicine Cardiovascular Disease | DX: R42 Dizziness and giddiness (principal) | CPT/HCPCS: 93005; 99202 ==